=== PATIENT | female | born 1975 | race African-American/Black ===

== ENCOUNTER 2025-05-31 20:40 | Emergency (ER) | payer MEDICARE, OTHER, SELFPAY ==
[2025-05-31 20:47] VITALS: BP 121/94
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
[2025-05-31 23:08] LABS: Hematocrit 29.9 % (37.0-47.0); Hemoglobin 10.3 g/dL (12.0-16.0); Mean Corp Hgb Conc. 34.4 g/dL (33.0-37.0); Mean Corpuscular Volume 88.2 fL (81.0-99.0); Nucleated Red Blood Cells % 0 %; Platelet Count 210 10^3/uL (130-400); Red Cell Dist. Width 11.9 % (11.5-14.5)
[2025-05-31 23:27] LABS: ALT (SGPT) 58 U/L (0-35); AST (SGOT) 44 U/L (14-36); Albumin 3.7 g/dl (3.5-5.0); Alkaline Phosphatase 125 U/L (38-126); Blood Urea Nitrogen 26 mg/dl (7-17); Calcium 9.8 mg/dl (8.4-10.2); Carbon Dioxide 30 mmol/L (22-30); Chloride 104 mmol/L (98-107); Glucose 160 mg/dl (70-99); Potassium 3.9 mmol/L (3.5-5.1); Sodium 138 mmol/L (135-145); Total Protein 7.1 g/dl (6.3-8.2); eGFR > 60.00
[2025-06-01 03:03] VITALS: BP 144/86
--- NOTE | 2025-06-01 03:11 | EDRN ---
Pt screaming 'NURSE!' repeatedly. This RN went in and oriented pt to where she is and informed pt it is inappropriate and unnecessary to scream. Pt has call rothman within reach which she activated. Attempted to talk with pt however she repeatedly
talked over this RN about other things and despite being asked repeatedly to acknowledge what this RN was saying to her, she would not do so. Pt demanded a bedpan covered with a chux pad. Pt rolled onto her L side and bedpan with chux pad placed.
Pt complained she wanted to hold the chux pad like a diaper. Pt given additional chux pad to hold.
--- NOTE | 2025-06-01 03:48 | EDRN ---
Pt rang call rothman, screaming. Pt asked for slipper socks which were applied. Pt asking for a suppository - request denied. Pt's bedpan on floor near trash can at foot of stretcher along with the pillow that was under her head. Pt did not void in
bedpan.
--- NOTE | 2025-06-01 04:56 | EDRN ---
Report given to Acute Care crew
== END 2025-06-01 05:05 ==
LOC: EMR 20:40
PROVIDERS: EMERGENCY PHYSICIAN Emergency Medicine; FAMILY PHYSICIAN Internal Medicine
DX: S09.93XA Unspecified injury of face, initial encounter (principal); X58.XXXA Exposure to other specified factors, initial encounter
CPT/HCPCS: 99284; 96374; 70450; 80053; 85025

== ENCOUNTER 2025-06-01 10:13 | Emergency (ER) | payer MEDICARE, OTHER, SELFPAY ==
[2025-06-01 10:16] VITALS: BP 203/114
[2025-06-01 10:33] VITALS: BMI 24.2
--- NOTE | 2025-06-01 10:34 | EDRN ---
Pt took off all cardiac leads and if placed takes them off again. Pt refusing blood. Pt continuously calling out, 'I don't want to be here. I'm not talking to you. I don't like you. I want to go to 4th floor [facility] (psyche unit at [facility]).
Mason was just in room w/ pt. Pt was banging on siderails so to protect pt seizure pads placed on bilateral siderails.
--- NOTE | 2025-06-01 10:40 | ED.GENMED ---
History of Present Illness
General
Chief Complaint: Psychiatric Problem
Source: patient and [facility]ci
Time Seen by Provider: 06/01/25 10:27
History of Present Illness
History of Present Illness:
Patient sent to the emergency by ambulance because of manic behavior at [facility] where she resides. Patient is repetitively calling 911 from her room because she wants to have various medical checks performed at [facility].
Patient perseverating on concerns that she might have low potassium and need a potassium infusion. She also repeatedly is asking to go to the fourth floor, psychiatric floor, at [facility]. Clearly manic with a flight of ideas, pressured
speech and no insight.
Phy Exam
Physical Exam
Physical Exam:
General: Awake, Alert, tearful, manic
Vitals: unremarkable
Head: Atraumatic
Eyes: Pupils equal, EOMI
Throat: Airway intact, no exudates
Neck: Trachea midline
Lungs: Clear and equal b/l
Heart: Regular rate, no murmurs
Abd: Soft, Nontender, No pulsatile mass
Neuro: Grossly nonfocal
Skin: Warm, dry, no rash
Extremities: pulses equal b/l, no edema
Course
Orders/Labs/Results
Orders:
Orders
06/01/25 10:37
diazePAM [Valium Injection] 10 mg IM NOW STA
06/01/25 10:38
PSYCHIATRY CONSULT Urgent
Consulting Provider: Juan M Ross
Was physician already notified: Yes
Crisis Consult Urgent
Reason for Consult: acute sirena
06/01/25 14:04
Olanzapine [Zyprexa] 10 mg IM NOW STA
06/01/25 15:00
Sterile Water [Sterile Water For Injection] 10 ml .ROUTE .STK-MED ONE
Abnormal Lab Results
06/01/25
13:42
POC Glucose 217 H mg/dl
(70-99)
Vital Signs
Initial and Last Documented VS:
Initial Vital Signs
Temp Pulse Resp BP Pulse Ox
98 F 112 14 203/114 97
06/01/25 10:16 06/01/25 10:16 06/01/25 10:16 06/01/25 10:16 06/01/25 10:16
Last Documented Vital Signs
Temp Pulse Resp BP Pulse Ox
98 F 98 16 188/116 99
06/01/25 10:16 06/01/25 15:10 06/01/25 15:10 06/01/25 15:10 06/01/25 15:10
MDM/Problems Addressed
Differential Diagnosis Includes:
Acute sirena, depression, dementia
MDM/Problems Addressed:
Patient with known mental illness acting erratically at her facility. She had labs and a head CT yesterday which were unremarkable. Patient treated with Valium and Zyprexa here. She was evaluated by psychiatry. Dr. Ross agrees the patient is
acutely manic but she does not meet criteria for involuntary commitment. She will only go to [place] for inpatient treatment and there are no beds available there. Therefore there is nothing else that can be done at this time. He would recommend
some medication changes but she refuses to change her meds
*Pulse Oximetry
SaO2: 97
Oxygen Mode of Delivery: Room air
Patient hypoxic: no
*Critical Care Note
Total Time (30-74mins, 75-104mins- exclusive of procedures): Not Applicable
Patient Management
Social determinants of health affecting care: Living situation
ED Attending Note
-
Portions of this chart may have been created with voice recognition software.� Occasional wrong word or��sound alike� substitutions may have occurred due to the inherent limitations of voice recognition software.
Discharge Plan
Departure
Patient Disposition: Fdc/SNF
Date of Disposition: 06/01/25
Time of Disposition: 15:21
Condition: Good
Discharge Problem:
Manic behavior
Instructions: Bipolar Disorder (DC)
Prescriptions:
No Action
Glucagon Emergency Kit 1 mg Kit
1 mg IM PRN PRN (Reason: BS< 60)
insulin glargine 100 unit/mL Solution
5 unit SC HS
trazodone 50 mg Tablet
50 mg PO HS
clonazepam 0.5 mg Tablet
0.5 mg PO TID PRN (Reason: anxiety)
magnesium hydroxide 400 mg/5 mL Suspension
2,400 ml PO DAILYPRN PRN (Reason: constipation; no BM X 3 days)
bisacodyl 10 mg Suppository
10 mg NC DAILY PRN (Reason: MOM does not work)
Fleet Enema 19-7 gram/118 mL Enema
118 ml NC ONCE PRN (Reason: if MOM + biscadyl ineffective)
oxcarbazepine 600 mg Tablet
600 mg PO BID
hydroxyzine HCl 25 mg Tablet
25 mg PO TID
furosemide 20 mg Tablet
20 mg PO DAILY
metoprolol succinate 25 mg Tablet Extended Release 24 Hr
25 mg PO DAILY
olanzapine 20 mg Tablet
20 mg PO HS
senna 8.6 mg Capsule
8.6 mg PO HS
gabapentin 100 mg Tablet
100 mg PO BID
melatonin 5 mg Tablet
5 mg PO HS
cholecalciferol (vitamin D3) [Vitamin D3] 125 mcg (5,000 unit) Tablet
125 mcg PO DAILY
apixaban 5 mg Tablet
5 mg PO BID
empagliflozin 10 mg Tablet
10 mg PO DAILY
sacubitril-valsartan 24-26 mg Tablet
1 tab PO BID
acetaminophen 500 mg Tablet
500 mg PO Q4H PRN (Reason: for mild pain/ temp>100.4 F)
Glucose Oral Gel 40%
1,500 mg PO PRN PRN (Reason: BS< 60)
Referrals:
[place],Venkata Jordy, DO [Family Provider, Internal Medicine]
Activity Restrictions/Additional Instructions:
Pt seen by psychiatry and does not beet criteria to be held against her will. Pt will not go to any other faciligy than [facility] who Dr. Villalta contacted but they have no bes availbale for her. She will not accept any change in medication.
Interventions
Interventions:
*Risk Screen - Suicide Last Done: 06/01/25 10:32
*General Assessment Last Done: 06/01/25 10:32
*Neglect/Abuse Screening Last Done: 06/01/25 10:32
*ED- Fall Risk Assessment Last Done: 06/01/25 10:52
*ED COVID-19 Vaccine History Last Done: 06/01/25 10:52
*Nursing Disposition Last Done: 06/01/25 16:30
ED-Psychological Assessment Last Done: 06/01/25 10:34
Discharge Date and Time
Discharge Date/Time: 06/01/25 16:32
Print Language: PAKISTANI
--- NOTE | 2025-06-01 10:41 | EDRN ---
Pt requesting a phone to call 911. Pt's belongings locked in security and room phone taken out of room. Pt repetitively saying 'I want to call 911.'
[2025-06-01] MEDS: VALIUM INJECTION 10 MG IM (10:45)
--- NOTE | 2025-06-01 10:50 | EDRN ---
Pt took of BP cuff and threw it on the floor and her hospital gown from [facility] that she came in with. Pt just medicated w/ valium as ordered. pt continuing to call out in loud yelling voice repetitive statements. Pt covered in a warm blanket as
pt is now nude under blanket at this time.
--- NOTE | 2025-06-01 11:17 | EDRN ---
Eliana from crisis saw pt and said after visit w/ pt that there is no reason for pt to be referred for inpt psychiatric care as pt is at her baseline. She also spoke w/ Dr. Cuevas.
[2025-06-01 11:20] VITALS: BP 172/108
--- NOTE | 2025-06-01 11:27 | EDRN ---
Pt continues to call out loudly for different things. At this time repetitively calling nurse. This RN was just in room, got vs, updated pt, and as pt ripped her diaper to pieces and threw it on floor-padded patient for incontinence. As pt remains
nude, fresh warm blankets placed over pt w/ socks placed on her feet. Pt has already ripped off BP cuff and POX and threw them on floor.
--- NOTE | 2025-06-01 11:31 | EDRN ---
Addendum entered by Ana Rosa Hasasn RN 06/01/25 11:44:
Psychiatrist on-call is Dr. Ross.
Original Note:
Speech is now notably slurred since valium. Dr. Cuevas has requested psychiatrist to see pt.
--- NOTE | 2025-06-01 11:49 | EDRN ---
Pt is repetitively calling nurse at this time and when this RN goes into room pt states w/ her slurred speech, 'I want to go to 4th floor [facility].' 'Tell general lithographic worker.'
[2025-06-01 13:25] VITALS: BP 187/108
--- NOTE | 2025-06-01 13:32 | EDRN ---
Pt was incontinent and given ulysses care w/ pad and blankets changed as pt was feeling cold. Socks also replaced. Pt continuously calling nurse.
[2025-06-01 13:44] LABS: Glucose - Point of Care 217 mg/dl (70-99)
--- NOTE | 2025-06-01 14:30 | EDRN ---
Dr. Ross in room w/ pt.
[2025-06-01 14:49] VITALS: BP 183/130
--- NOTE | 2025-06-01 14:52 | EDRN ---
After interviewing pt Dr. Ross spoke w/ this RN and said pt should return to [facility] as no place for pt in only place she will go to, 4th floor [place]. He added that pt is very manic at this time.
--- NOTE | 2025-06-01 14:55 | EDRN ---
Dr. Cuevas was TT'd w/ info Dr. Ross gave to me.
--- NOTE | 2025-06-01 15:02 | W.PN.UPDATE ---
Update Note
Progress Note Update
Psychiatric evaluation dictated.
49 yo female with history of CVA who is currently in a manic state. She has looseness of associations ans is tangential and difficult to redirect. She does not want to be at [facility] has called 911 to be removed.
Wants to go to [facility] psychiatric unit but nowhere else , claims she knows Gr. Holland there who has or is still seeing her.
We called [facility] but no bed is available. At this point she does not want to go anywhere else and she does not satisfy criteria for commitment.
Hopefully next week Dr. Christian can F/U with her.
[2025-06-01] MEDS: ZYPREXA 10 MG IM (15:08)
[2025-06-01 15:10] VITALS: BP 188/116
== END 2025-06-01 16:32 ==
LOC: EMR 10:13
PROVIDERS: CONSULT PHYSICIAN Psychiatry & Neurology Psychiatry; EMERGENCY PHYSICIAN Emergency Medicine; FAMILY PHYSICIAN Internal Medicine
DX: F31.9 Bipolar disorder, unspecified (principal); Z86.73 Personal history of transient ischemic attack (TIA), and cerebral infarction without residual deficits
CPT/HCPCS: 99285; 96372; 82962; J2358

== ENCOUNTER 2025-06-03 14:43 | Emergency (ER) | payer MEDICARE, OTHER, SELFPAY ==
[2025-06-03 15:49] VITALS: BP 168/127
--- NOTE | 2025-06-03 19:33 | ED.GENMED ---
Addendum entered and electronically signed by Arcenio Toledo MD 06/03/25 21:29:
I ordered patient's home medications as per her medication list. Given her multiple medical issues and likely prolonged boarding time while pending psych placement I discussed the case with hospitalist for consultation while boarding.
Addendum entered and electronically signed by Arcenio Toledo MD 06/03/25 21:17:
UPDATE (Arcenio Toledo MD)
I have seen and evaluated the patient after signout and reviewed all labs and imaging.
Focused HPI: 49-year-old female with extensive medical history who lives at [facility] presented with agitation and delusions. 302 filed by family states that patient trying to tie a curtain around her neck. In addition to these attempts of
self-harm also not eating or caring for herself.
Physical exam: Patient intermittently quite agitated here and not redirectable. Screaming intermittently with obvious delusions. Flight of ideas, pressured speech, poor insight and judgment.
Medical Decision Makin-year-old female presents as above 302 filed by family multiple recent visits for aggressive/manic behavior most recent yesterday. Patient on one-to-one observation. Discussed with crisis staff, telepsychiatry recommending
302 be upheld. Will continue to monitor pending psychiatric placement.
Original Note:
History of Present Illness
General
Chief Complaint: Crisis Evaluation
Source: patient and ambulance crew
Exam Limitations: clinical condition
Time Seen by Provider: 06/03/25 18:03
Nursing documentation reviewed up to this point in time: agreed with
History of Present Illness
History of Present Illness:
Note:
CHIEF COMPLAINT(S)
Confusion and repetitive calling of police.
HISTORY OF PRESENT ILLNESS
The patient is a 49-year-old female with a known history of bipolar disorder. She was brought to the emergency department from a [place] [facility], identified as [facility], via emergency medical services. The [place] [facility] staff reports that the patient
has possibly not received her medications for the past two days. Recently, the patient expressed a desire to make a police report, though the reasons are unclear. It was noted that she has contacted the police 15 times yesterday and three times
today. During the examination, she appeared confused and mentioned multiple individuals at the [place] [facility]. She denies any physical complaints.
CHRONIC MEDICAL CONDITIONS SIGNIFICANTLY AFFECTING CARE
Bipolar disorder.
ADDITIONAL HISTORY OBTAINED FROM SOURCES OTHER THAN THE PATIENT
According to the [place] [facility] staff at [facility], the patient may not have received her medications for two days.
According to emergency medical services, the patient has contacted police repeatedly in recent days due to confusion and claims about individuals at the [place] [facility].
Social determinants affecting health:
The patients family, along with the [place] [facility], has filed a 302, indicating concerns about her mental health status.
PROBLEM LIST
- Acute: Confusion, Repetitive contacting of police.
- Chronic: Bipolar disorder.
DIFFERENTIAL DIAGNOSIS
The Differential Diagnosis includes, in no particular order and is not limited to:
1. Medication non-compliance or withdrawal.
2. Acute exacerbation of bipolar disorder.
3. Delirium.
4. Substance use or withdrawal.
5. Schizophrenia or schizoaffective disorder.
6. Dementia.
7. Urinary tract infection or other infections leading to altered mental status.
8. Electrolyte imbalance.
9. Hypoglycemia.
10. Thyroid dysfunction.
CARE-UPDATE
06/03/25 - 19:36
The patient is awaiting placement at [facility] or an alternative facility. Consideration for a 302 evaluation is pending, and we are waiting on crisis intervention. If the patient is not voluntarily admitted to [facility], telocyte intervention may be
required.
Disposition:
SUMMARY OF ENCOUNTER
The patient is a 49-year-old female with a history of bipolar disorder, brought to the emergency department due to confusion and repetitive calling of the police. The [place] [facility] staff from [facility] indicates the patient may not have received
her medications for the past two days, which could be contributing to her symptoms. Today, she has shown acute confusion and made several calls to the police, reporting issues with individuals in the [place] [facility]. In the emergency department, she
was evaluated for potential exacerbation of her bipolar disorder and possible medication non-compliance or withdrawal.
DISPOSITION
Disposition to psychiatric facility.
ASSESSMENT
The patients acute confusion and repetitive calling of the police are likely related to an exacerbation of her bipolar disorder, possibly due to medication non-compliance or withdrawal.
PLAN
Await placement at [facility] or an alternative facility for psychiatric evaluation and management. Consideration for a 302 evaluation is pending, with crisis intervention on standby.
MEDICAL DECISION MAKING
- Complexity of Data Reviewed: Chronic conditions affecting care include bipolar disorder. Differential diagnosis includes medication non-compliance or withdrawal, acute exacerbation of bipolar disorder, delirium, substance use or withdrawal,
schizophrenia or schizoaffective disorder, dementia, infections causing altered mental status, electrolyte imbalance, hypoglycemia, and thyroid dysfunction.
- Data:
- Category 1: External record reviewed indicates possible medication non-compliance as reported by the [place] [facility].
- Category 2: Clinical information obtained from [place] [facility] staff and emergency medical services regarding the patients recent behavior and confusion due to potential medication issues.
- Category 3: Discussion of management with mental health liaison regarding the need for potential crisis intervention and psychiatric facility placement.
- Risk: Prescription medication management was critical in determining the patient�s care, with potential risks of non-compliance or withdrawal, leading to exacerbation of symptoms.
DIAGNOSIS
1. Bipolar Disorder, Current Episode Hypomanic, ICD-10: F31.0
2. Medication Non-Compliance, Suspected, R53.82
3. Acute Confusion, Possibly Related to Bipolar Disorder, Potentially Related to Medication Issues, ICD-10: R41.0
Phy Exam
Physical Exam
Physical Exam:
Physical Exam
General: Poorly kept, agitated
Neck: supple. no meningeal signs. normal posterior pharynx
Heart: s1/s2 regular rate and rhythm, no murmur. equal radial
pulses.
HEENT: Pupils equal round reactive to light, EOMI
Lungs: no acute respiratory distress. clear bilaterally
Abdomen: normal bowel sounds. not tender. no CVAT
Neuro: alert and oriented. no focal neurological deficits cranial nerves II through XII intact
Skin: no rash
Psychiatric: Flight of ideas, angry with excited speech, pressured speech
Extremities: no edema. no calf tenderness. negative homans. good distal pulses
Course
Orders/Labs/Results
Orders:
Orders
06/03/25 18:09
Crisis Consult Urgent
Reason for Consult: bipolar, 302
Vital Signs
Initial and Last Documented VS:
Initial Vital Signs
Temp Pulse Resp BP Pulse Ox
98.2 F 76 18 168/127 100
06/03/25 15:49 06/03/25 15:49 06/03/25 15:49 06/03/25 15:49 06/03/25 15:49
Last Documented Vital Signs
Temp Pulse Resp BP Pulse Ox
98.2 F 76 18 168/127 100
06/03/25 15:49 06/03/25 15:49 06/03/25 15:49 06/03/25 15:49 06/03/25 15:49
*Pulse Oximetry
SaO2: 100
Oxygen Mode of Delivery: Room air
Patient hypoxic: no
*Critical Care Note
Total Time (30-74mins, 75-104mins- exclusive of procedures): Not Applicable
ED Attending Note
-
Portions of this chart may have been created with voice recognition software.� Occasional wrong word or��sound alike� substitutions may have occurred due to the inherent limitations of voice recognition software.
Discharge Plan
Departure
Patient Disposition: Psych Facility
Date of Disposition: 06/03/25
Time of Disposition: 19:38
Patient Status:: Crisis
Patient with high blood pressure during this ER visit?: Yes
Condition: Good
Discharge Problem:
Bipolar 1 disorder with moderate sirena
Prescriptions:
No Action
Glucagon Emergency Kit 1 mg Kit
1 mg IM PRN PRN (Reason: BS< 60)
insulin glargine 100 unit/mL Solution
5 unit SC HS
trazodone 50 mg Tablet
50 mg PO HS
clonazepam 0.5 mg Tablet
0.5 mg PO TID PRN (Reason: anxiety)
magnesium hydroxide 400 mg/5 mL Suspension
2,400 ml PO DAILYPRN PRN (Reason: constipation; no BM X 3 days)
bisacodyl 10 mg Suppository
10 mg FL DAILY PRN (Reason: MOM does not work)
Fleet Enema 19-7 gram/118 mL Enema
118 ml FL ONCE PRN (Reason: if MOM + biscadyl ineffective)
oxcarbazepine 600 mg Tablet
600 mg PO BID
hydroxyzine HCl 25 mg Tablet
25 mg PO TID
furosemide 20 mg Tablet
20 mg PO DAILY
metoprolol succinate 25 mg Tablet Extended Release 24 Hr
25 mg PO DAILY
olanzapine 20 mg Tablet
20 mg PO HS
senna 8.6 mg Capsule
8.6 mg PO HS
gabapentin 100 mg Tablet
100 mg PO BID
melatonin 5 mg Tablet
5 mg PO HS
cholecalciferol (vitamin D3) [Vitamin D3] 125 mcg (5,000 unit) Tablet
125 mcg PO DAILY
apixaban 5 mg Tablet
5 mg PO BID
empagliflozin 10 mg Tablet
10 mg PO DAILY
sacubitril-valsartan 24-26 mg Tablet
1 tab PO BID
acetaminophen 500 mg Tablet
500 mg PO Q4H PRN (Reason: for mild pain/ temp>100.4 F)
Glucose Oral Gel 40%
1,500 mg PO PRN PRN (Reason: BS< 60)
Referrals:
Venkata Turk DO [Family Provider, Internal Medicine]
Interventions
Interventions:
*Risk Screen - Suicide Last Done: 06/03/25 15:23
*General Assessment Last Done: 06/03/25 15:23
*Neglect/Abuse Screening Last Done: 06/03/25 15:23
*ED COVID-19 Vaccine History Last Done: 06/03/25 15:23
ED-Psychological Assessment Last Done: 06/03/25 14:52
Discharge Date and Time
Print Language: HUNGARIAN
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
[2025-06-03 21:52] LABS: Glucose - Point of Care 109 mg/dl (70-99)
[2025-06-03 22:05] LABS: Hematocrit 34.4 % (37.0-47.0); Hemoglobin 11.7 g/dL (12.0-16.0); Mean Corp Hgb Conc. 34.0 g/dL (33.0-37.0); Mean Corpuscular Volume 89.4 fL (81.0-99.0); Platelet Count 245 10^3/uL (130-400); Red Cell Dist. Width 12.2 % (11.5-14.5)
[2025-06-03 22:21] LABS: ALT (SGPT) 30 U/L (0-35); AST (SGOT) 22 U/L (14-36); Albumin 4.5 g/dl (3.5-5.0); Alkaline Phosphatase 140 U/L (38-126); Blood Urea Nitrogen 20 mg/dl (7-17); Calcium 10.3 mg/dl (8.4-10.2); Carbon Dioxide 20 mmol/L (22-30); Chloride 110 mmol/L (98-107); Glucose 109 mg/dl (70-99); Iron 67 ug/dl (37-170); Potassium 4.0 mmol/L (3.5-5.1); Sodium 145 mmol/L (135-145); Total Protein 8.5 g/dl (6.3-8.2); eGFR > 60.00
[2025-06-03] MEDS: ENTRESTO 24 MG/26 MG PO (22:22)
[2025-06-03] MEDS: ELIQUIS PO (22:22)
[2025-06-03] MEDS: ATARAX PO (22:22)
[2025-06-03] MEDS: TRILEPTAL PO (22:23)
[2025-06-03] MEDS: NEURONTIN PO (22:23)
[2025-06-03 22:30] LABS: Total Iron Binding Capacity 178 ug/dl (265-497)
[2025-06-03 23:27] LABS: Ferritin 336.0 ng/ml (6.24-137)
[2025-06-03 23:41] LABS: Vitamin B12 548 pg/ml (239-931)
[2025-06-04 02:44] VITALS: BP 168/111
[2025-06-04 08:00] VITALS: BP 136/85
--- NOTE | 2025-06-04 08:58 | PTOTSP ---
STAPLE SHEAR OPERATOR Note
Per discussion with staff at [facility], patient was on a Regular, Thin liquid diet prior to admission. Attempted to see patient for dysphagia evaluation. Patient emotionally labial with tangential speech. When given thin liquids, patient threw
cup at clinician. Further trials held. Will follow up if/when appropriate.
[2025-06-04 09:02] LABS: Glycohemoglobin (HgbA1c) 6.2 % (4.0-5.6)
[2025-06-04] MEDS: ATIVAN 0.5 MG SL (09:06)
[2025-06-04] MEDS: LASIX 20 MG PO (09:07)
[2025-06-04] MEDS: ELIQUIS 5 MG PO (09:07)
[2025-06-04] MEDS: TOPROL XL 25 MG PO (09:08)
[2025-06-04] MEDS: ATARAX 25 MG PO (09:08)
[2025-06-04] MEDS: NEURONTIN 100 MG PO (09:11)
[2025-06-04 09:15] VITALS: BP 176/114
[2025-06-04 09:17] LABS: Glucose - Point of Care 102 mg/dl (70-99)
[2025-06-04] MEDS: TRILEPTAL 600 MG PO (09:55)
[2025-06-04] MEDS: VITAMIN D3 (cholecalciferol) 125 MCG PO (09:55)
[2025-06-04] MEDS: ENTRESTO 24 MG/26 MG 1 TAB PO (09:55)
--- NOTE | 2025-06-04 10:54 | W.PN.HOSP.TC ---
Today's Communication/Plan
-
No acute medical issues from standpoint of cardiovascular state and diabetes.
Occasionally agitated and paranoid. Pending psychiatry evaluation with disposition.
Assessment / Plan
Assessment / Plan
Head CT 05-31-25-no acute intracranial abnormality. Large chronic right MCA infarct
EKG-sinus tachycardia ST-T changes in the inferior anterior leads
# Abnormal behavior with suicidal ideations/thoughts
Anxiety/bipolar disorder
Brother also states that she probably has a diagnosis schizophrenia not listed in the custodial history
Treatment per psychiatry
302 filed by family
Continue psychiatric medications per psychiatry
Head CT -no acute changes
Patient was on trazodone 50 mg at bedtime, oxcarbazepine 600 mg twice daily, olanzapine 20 mg at bedtime, hydroxyzine 25 mg 3 times daily, clonazepam0.5 mg 3 times daily as needed for anxiety. She is also on Ativan gel-will use IV as needed here
# History of chronic right MCA infarct-continue Eliquis
# Recently elevated LFTs-check LFTs today
# Cardiomyopathy/CHF unclear details-
Daily intake output charting and daily weights
Fluid restriction 1500 mL
Lasix 20 mg daily
Continue Entresto, metoprolol ,Jardiance
# Diabetes-updated hemoglobin A1c 6.2
Accu-Cheks and sliding scale coverage
Patient is on Lantus 5 units at night, Jardiance
# Paroxysmal atrial fibrillation-continue Eliquis and metoprolol
# History of pericardial effusion-details unclear
# Anemia-check iron studies
# History of hypothyroidism per chart- Not on any replacement per med list. Check TSH
# Dysphagia-speech evaluation. I could not find a diet on the custodial records
# History of retroperitoneal hemorrhage per chart
# Ambulatory dysfunction-consider PT evaluation if patient is staying longer time
# DVT prophylaxis-Eliquis
# Full code
Subjective/Interval History
-
Date of Service: June 04, 2025
Objective Data
-
Vital Signs:
Vital Signs
Temp Pulse Resp BP Pulse Ox
98.5 F 121 20 176/114 100
06/04/25 08:00 06/04/25 09:15 06/04/25 09:15 06/04/25 09:15 06/04/25 09:15
Physical Exam
-
General: Well Developed and No Apparent Distress
HEENT: Normocephalic, Atraumatic and Moist Mucous Membranes
Respiratory: Clear to Auscultation
Cardiac: Regular Rhythm and S1/S2; Negative Murmur, Rub or Gallop
GI: Soft, Nontender, Nondistended and Normal Bowel Sounds; Negative Organomegaly
Rectal: Deferred by Provider
Musculoskeletal: No Clubbing, No Cyanosis and No Edema
Skin: Negative Rash
Neuro: Awake, Alert, Oriented and Nonfocal/Grossly Intact
Psych: Agitated and Other (Paranoid); Negative Anxious
--- NOTE | 2025-06-04 14:06 | ED.CRISIS ---
ED Crisis Note
ED Crisis Note
Subjective:
No new issues
Assessment/Plan:
Spoke to Dr. Simon - planning d/c back to [place]
--- NOTE | 2025-06-04 14:15 | CON.MD ---
Consultation - Medical
-
patient seen chart reviewed. this consult is being done today june 04 2025. the patient is a 49 year old woman who resides at [facility]. she has been here several times in the past several days and each time has been returned to [place].
this time her family filed a 302 petition which was upheld. patient was alleged to be suicidal and agitated. it is noted in the record that she had not had her psych meds for several days which have now been resumed including zyprexa 20 mg daily
trileptal 600 mg bid and trazodone 50 mg q hs. the patient is unable to give a coherent hx although she could tell me she was at [place] and was willing to return there. she could also give me her date of . while these were relevant pieces
of information it was often difficult to follow her train of thought and she is a poor historian as she tends to verbally ramble including much material which tangential. dr peoples did speak to a family member and information and that information
is in the chart. she was hospitalized in the last year at [facility] a number of times. she was [facility] dc to [facility] but needed psych admit so many times they would not take her back and she was then sent to [place].
past psych hx patient has a long hx of psych illness dating back to her teens. she was dx as schizophrenic at some point and also dx as bipolar
medical hx patient with a number of medical issues. she suffered a rt mca stroke. current cat of brain shows no acute findings. patient w hx hemiplegia secondary to stroke a fib chf htn hld pericardial effusion ambulatory dysfunction
diabetes mellitus hypothyroid vit d def cardiomyopathy retroperitoneal hemorrhage. noted inc lft's hgb 11.7 abnormal iron studies qtc 455
substance abuse none
fh non contributory
social resides at [facility]
mse alert oriented to person and time. speech is rambling and tangential i would guess there is delusional material embedded in her speech but it is difficult to say with certainty. mood is neutral affect constricted denies that she wishes to
hurt herself insight judgment lacking cognition is impaired
dx schizophrenia ? dementia
plan patient's psychotropic meds have been restarted as of yesterday. she says she is willing to return to [facility]. even if we can get her into a psych hosp which we have been unable to do, it is not clear to me what that would accomplish. it
is my impression that her mental status at this point is chronically impaired. she has had several hospital stays in the past year that seem to have gotten her to her baseline. i suspect missing several days of her meds may have contributed to her
decomp. hopefully w resumption of her meds she will resume baseline status. staff will arrange for return to [place].
== END 2025-06-04 15:49 ==
LOC: EMR 14:43
PROVIDERS: Hospitalist; CONSULT PHYSICIAN Internal Medicine; CONSULT PHYSICIAN Psychiatry & Neurology Psychiatry; EMERGENCY PHYSICIAN Emergency Medicine; FAMILY PHYSICIAN Internal Medicine
DX: R41.0 Disorientation, unspecified (principal); T14.91XA Suicide attempt, initial encounter; X83.8XXA Intentional self-harm by other specified means, initial encounter; F22 Delusional disorders; R45.1 Restlessness and agitation; F31.0 Bipolar disorder, current episode hypomanic; I13.0 Hypertensive heart and chronic kidney disease with heart failure and stage 1 through stage 4 chronic kidney disease, or unspecified chronic kidney disease; I50.9 Heart failure, unspecified; E11.22 Type 2 diabetes mellitus with diabetic chronic kidney disease; N18.9 Chronic kidney disease, unspecified; F20.9 Schizophrenia, unspecified; R13.10 Dysphagia, unspecified; I69.359 Hemiplegia and hemiparesis following cerebral infarction affecting unspecified side; I48.0 Paroxysmal atrial fibrillation; I42.9 Cardiomyopathy, unspecified; F41.9 Anxiety disorder, unspecified; E78.5 Hyperlipidemia, unspecified; E03.9 Hypothyroidism, unspecified; E55.9 Vitamin D deficiency, unspecified; Z91.148 Patient's other noncompliance with medication regimen for other reason; Z79.899 Other long term (current) drug therapy; Z79.4 Long term (current) use of insulin; Z88.8 Allergy status to other drugs, medicaments and biological substances
CPT/HCPCS: 99285; 80053; 82607; 82728; 82962; 83036; 83540; 83550; 85027; 93005